=== PATIENT | female | born 1980 | race Caucasian/White ===

== ENCOUNTER 2020-11-13 15:03 | Outpatient (CLI) | payer OTHER | END 2020-11-13 15:04 | disposition home or self-care (01) | LOC: BICRAD 15:03 | PROVIDERS: ATTEND Family Medicine | DX: R20.2 Paresthesia of skin (principal); R20.0 Anesthesia of skin; R53.1 Weakness; N20.0 Calculus of kidney; M47.812 Spondylosis without myelopathy or radiculopathy, cervical region; M47.816 Spondylosis without myelopathy or radiculopathy, lumbar region; M41.9 Scoliosis, unspecified | CPT/HCPCS: 72040; 72072; 72100 ==